=== PATIENT | female | born 1965 | race Caucasian/White ===

== ENCOUNTER 2017-02-24 12:24 | Emergency (ER) | payer SELFPAY ==
[~2017-02-24] VITALS: Ht 162.6 cm; Wt 86.0 kg
[~2017-02-24 12:24] MED LIST: ABIL5TAB6 PO; CYCL1PAK PO; DULO60 PO; FENT100D T-DERMAL; LAMO100 PO; LISI-360 PO; LISI20 PO; METH500T3 PO; MORP60TA20 PO; NEUR400C PO; VIST25CA PO; ZOLP10TA3 PO
[2017-02-24 12:26] VITALS: BP 220/111; PULSE 84; TEMP 98.7; O2SAT 97
--- NOTE | 2017-02-24 12:31 | PD ---
Physical Exam Date Seen by Provider: February 24, 2017 Time Seen by Provider: 12:26 Narrative 51 YOWF C/O R FOOT PAIN FOR 8 DAYS SEEN TWICE IN [place] FOR THE SAME. DX WITH GOUT. VS NOTED WAITING FOR BED PLACEMENT MDM Medical Record Reviewed: Yes Supervised Visit with MARLENE: Earl Bejarano February 24, 2017 12:31
[2017-02-24] MEDS ORDERED: DEXAMETHASONE SOD PHOS 4 MG/ML VIAL IM ONE (12:45)
--- NOTE | 2017-02-24 12:47 | PD ---
HPI Chief Complaint: Pain: Acute or Chronic Time Seen by Provider: 12:43 Travel History International Travel<30 days: No Contact w/Intl Traveler<30days: No Traveled to known affect area: No History of Present Illness HPI Patient comes in complaining of continued right ankle pain. Patient's pain began over a week ago was seen at different ER twice first time was diagnosed with cellulitis and then gout. Patient states while on antibiotics symptoms did not improve however starting colchicine did help her symptoms improve. Pain started getting worse after she ran out of colchicine 2 or 3 days ago. Patient describes pain as a burning like sensation anterior aspect of her right ankle and radiates into her linares. Patient denies any known injury, numbness or tingling anywhere, fevers, nausea, vomiting, or previous episodes like this. Pain is worse with standing or walking. Patient denies having x-ray done previously. Patient does report she is on fentanyl through pain management for her chronic neck and back pain. Patient states pain was gradual onset and progressively got worse. Patient states she has also been applying ice and ambulating with the assistance of crutches. PFSH Past Medical History Bipolar Disorder: Yes Depression: Yes Diminished Hearing: No Herniated Disk: Yes (CHRONIC BACK AND NECK PAIN) Hypertension: Yes Psychiatric: Yes (Bipolar Disorder) Schizophrenia: No Past Surgical History Ear Surgery: Yes Gynecologic Surgery: Yes (D&C) Social History Alcohol Use: Yes (4 LOCO ) Tobacco Use: Yes (1 PPD ) Substance Use: Yes Allergies-Medications (Allergen,Severity, Reaction): Coded Allergies: No Known Allergies (Unverified , 08/03/16) Reported Meds & Prescriptions Reported Meds & Active Scripts Active Medrol Dosepak (Methylprednisolone) 4 Mg Dspk 4 Mg PO DIRECTED Per Pharmacist direction Prinivil 20 mg (Lisinopril) 20 Mg Tab 20 Mg PO DAILY Lamictal (Lamotrigine) 100 Mg Tab 150 Mg PO BID 30 Days Duloxetine HCl 60 Mg Cap 60 Mg PO BID 30 Days Reported Lisinopril 10 mg (Lisinopril) 10 Mg Tab 1 Tab PO DAILY Cyclobenzaprinepax 10 & 0.0375-5 mg & % (Euhwvwhdhkbbxqa-Resnaerkg-Yhsf) 10 Mg Tab 10 Mg PO TID PRN Ambien 10 Mg Tab (Zolpidem Tartrate) 10 Mg Tab 10 Mg PO HS Methocarbamol 500 Mg Tab 500 Mg PO QID Gabapentin 400 Mg Cap 300 Mg PO BID Vistaril (Hydroxyzine Pamoate) 25 Mg Cap 25 Mg PO Q6H PRN Morphine Sulfate Cr (Morphine Sulfate) 60 Mg Cap 60 Mg PO TID Fentanyl 100 Mcg/Hr patch (Fentanyl) 100 Mcg/H Dis 1 Patch T-DERMAL Q3D Review of Systems Except as stated in HPI: all other systems reviewed are Neg Physical Exam Narrative GENERAL: Well-developed, overly nourished, in no acute distress, and non-ill appearing. SKIN: Focused skin assessment warm and dry. HEAD: Atraumatic. Normocephalic. EYES: Pupils equal and round. EOMI. No scleral icterus. No injection or drainage. ENT: No nasal bleeding or discharge. Mucous membranes pink and moist. NECK: Trachea midline. Supple. No nuclear rigidity. CARDIOVASCULAR: Dorsal pulses 2+, intact, and equal bilaterally. Capillary refill less than 2 seconds.. RESPIRATORY: No accessory muscle use. No respiratory distress. MUSCULOSKELETAL: No obvious deformities. No clubbing. No cyanosis. No edema. Full range of motion. Ankle: Neagative anterior draw and Bourne test. Negative Francie's sign. No laxity noted with passive inversion and eversion of BL ankles. Negative squeeze test. Pulses equal BL distal to injury. Capillary refill less than 2 seconds distal to injury and equal BL. Sensation equal BL 1st web space. FROM of toes distal to injury and equal BL. NV intact distal to injury and equal BL. Dorsal pulses equal BL. Minimal soft tissue swelling noted right ankle. Patient reports tenderness to palpation throughout right ankle and anterior linares bone. NEUROLOGICAL: Awake and alert. No obvious cranial nerve deficits. Motor grossly within normal limits. Normal speech. PSYCHIATRIC: Appropriate mood and affect; insight and judgment normal. Data Data Last Documented VS Vital Signs Date Time Temp Pulse Resp B/P Pulse Ox O2 Delivery O2 Flow Rate FiO2 02/24/17 13:49 88 20 179/95 97 Room Air 02/24/17 12:26 98.7 Orders Ankle, Complete ([id number]) (02/24/17 ) Dexamethasone Inj (Decadron Inj) (02/24/17 12:45) Ice/Cold Pack (02/24/17 12:46) MDM Medical Decision Making Medical Screen Exam Complete: Yes Emergency Medical Condition: Yes Differential Diagnosis Fracture, sprain, gout, pseudogout, shins splints, other Narrative Course There is no clinical evidence for fracture. There is no clinical evidence to suspect bony injury by exam. Radiographic examination revealed no fracture seen at this time. No obvious ligamental injury or internal derangement is noted at this time. The distal extremity appears neurovascularly intact, without evidence of neurovascular injury nor compartment syndrome. Tendon exam also was intact. The patient was discharged on steroids, given linares splints instructions , and given warnings for vascular compromise. The patient is to follow up with primary care provider and/or Orthopedics. The patient agrees with plan. Patient in no obvious distress upon re-evaluation. All pertinent Radiology result(s) discussed with patient. Patient was asked if they wanted to speak to my attending, which the patient did not wish to do at this time. Any questions/ concerns in reference to patient diagnosis/condition discussed and clarified prior to patient's discharge. Reinforced sheer importance of close follow up with patient's primary physician or primary care clinic. Instructed patient to return to ED immediately, if symptoms return/worsen. Pt showed understanding of above instructions. Further instructions and recommendations were detailed in discharge paperwork. Pt ambulated without difficulty out of ED at discharge with the assistance of her crutches. Diagnosis Primary Impression: Linares splints Qualified Code: S86.891A - Linares splints, right, initial encounter Patient Instructions: General Instructions, Linares Splint Exercises (GEN), Linares Splints (ED) Additional Instructions: Follow-up with your primary care physician and/or orthopedics in 3-5 days for reevaluation. Take all medication as prescribed. Apply ice to affected area 20 minutes per hour as needed for pain. Return to the emergency department if symptoms get worse. Med/Other Pt SpecificInfo: Prescription(s) given Scripts Methylprednisolone Dosepak (Medrol Dosepak)4 Mg Dspk4 Mg PO DIRECTED #1 DSPK Ref 0 Per Pharmacist direction Prov:David Alfaro MD 02/24/17 Disposition: 01 DISCHARGE HOME Condition: Stable Jose A Bonilla February 24, 2017 12:47
--- NOTE | 2017-02-24 13:28 | RADRPT ---
EXAM DATE/TIME: 02/24/2017 12:50 [facility] COMPARISON: No previous studies available for comparison. INDICATIONS : Patient states ankle has been swollen for ten days. MEDICAL HISTORY : Hypertension. SURGICAL HISTORY : None. ENCOUNTER: Initial ACUITY: 2 weeks PAIN SCORE: 8/10 LOCATION: Right Ankle. FINDINGS: Diffuse swelling is present. There is no evidence of acute fracture. Bony mineralization is normal. T he ankle mortise is intact. CONCLUSION: 1. There is no evidence of acute fracture. Héctor Taylor MD on February 24, 2017 at 13:12 Board Certified Radiologist. This report was verified electronically.
[2017-02-24] MEDS ORDERED: MEDR4PAK PO (13:47)
[2017-02-24 13:49] VITALS: BP 179/95; PULSE 88; RESP 20; O2SAT 97
== END 2017-02-24 13:55 | disposition home or self-care (01) ==
LOC: NEPD 12:24
DX: S86.891A Other injury of other muscle(s) and tendon(s) at lower leg level, right leg, initial encounter (principal); X58.XXXA Exposure to other specified factors, initial encounter
CPT/HCPCS: 73610; 96372; 99283; J1100